=== PATIENT | female | born 1960 | race Caucasian/White ===

== ENCOUNTER 2019-09-05 10:07 | Emergency (ER) | payer SELFPAY ==
[~2019-09-05] VITALS: Ht 157.4 cm; Wt 104.5 kg
[~2019-09-05 10:07] MED LIST: ALPR0.25 PO; ASP81TEC PO; ASPI-892 PO; FURO40TA4 PO; LISI10TA2 PO; LISI5TAB PO; LISI5TAB14 PO; METO-272 PO; MTP25TSR PO; MULT-974 PO; NITR100C44 PO; OMG1KC PO; PANT40SU PO; PANT40TA2 PO; POTA20TA15 PO
--- NOTE | 2019-09-05 11:40 | ED Lower Extremity ---
General Chief Complaint: Lower Extremity Stated Complaint: L LEG SWELLING/PAIN;SOA Nursing Triage Note: PT AMB TO TRIAGE WITH COMPLAINT OF LEFT LEG SWELLING AND REDNESS. STATES STARTED YESTERDAY. Nursing Sepsis Screen: No Definite Risk Source: patient Exam Limitations: no limitations History of Present Illness Date Seen by Provider: Sep 05, 2019 Time Seen by Provider: 11:38 Initial Comments To ER with reports of medial left lower leg redness swelling and tenderness that began yesterday. She's also had some intermittent shortness of breath since then but states that she has some anxiety and it could be simply related to that. Onset: just prior to arrival Severity: moderate Pain/Injury Location: left leg Method of Injury: unknown Modifying Factors: Worse With Movement Allergies and Home Medications Allergies Coded Allergies: codeine (Verified Allergy, Unknown, 04/08/15) Home Medications Alprazolam 0.25 Mg Tablet, 0.5 TAB PO DAILY PRN for ANXIETY, (Reported) NEEDED FOR ANXIETY Amoxicillin/Potassium Clav 1 Each Tablet, 1 EACH PO BID Prescribed by: VICTOR MANUEL GARCÍA on 09/05/19 1206 Aspirin 81 Mg Tabec, 81 MG PO Q48HRS, (Reported) TAKES ABOUT EVERY OTHER DAY Furosemide 40 Mg Tablet, 20 MG PO DAILY PRN for SWELLING, (Reported) TAKES 1/2 (40MG) TABLET NEEDED FOR SWELLING Lisinopril 5 Mg Tablet, 5 MG PO BID Prescribed by: RAHEEM ORELLANA on 04/09/15 1119 Metoprolol Succinate 50 Mg Tab.sr.24h, 50 MG PO BID, (Reported) TAKES AT 11 AM AND 11 PM Multivitamin 1 Each Tablet, 1 TAB PO DAILY, (Reported) Nitrofurantoin/Nitrofuran Mac 100 Mg Capsule, 100 MG PO BID Prescribed by: RAHEEM ORELLANA on 04/09/15 1100 [place] 3 Polyunsat Fatty Acids 1,000 Mg Cap, 1,000 MG PO DAILY, (Reported) Pantoprazole Sod 40 Mg Tab, 40 MG PO DAILY Prescribed by: DANIELE HUSSEIN on 04/09/15 0840 Potassium Chloride 20 Meq Tab.prt.sr, 20 MEQ PO DAILY PRN for WHEN TAKING FUROSEMIDE, (Reported) NEEDED WHEN TAKING FUROSEMIDE Patient Home Medication List Home Medication List Reviewed: Yes Review of Systems Constitutional: see HPI; No chills, No fever EENTM: see HPI Respiratory: no symptoms reported Cardiovascular: no symptoms reported Genitourinary: no symptoms reported Musculoskeletal: see HPI Skin: see HPI Psychiatric/Neurological: No Symptoms Reported Past Hmyyvsr-Zhghye-Lrvxwh Hx Patient Social History Alcohol Use: Denies Use Recreational Drug Use: No Smoking Status: Current Everyday Smoker Type Used: Cigarettes Recent Foreign Travel: No Contact w/Someone Who Travel: No Recent Infectious Disease Expo: No Recent Hopitalizations: No Physical Abuse: No Sexual Abuse: No Mistreated: No Fear: No Immunizations Up To Date Tetanus Booster (TDap): Unknown PED Vaccines UTD: Yes Date of Influenza Vaccine: Nov 13, 2013 Seasonal Allergies Seasonal Allergies: Yes Past Medical History Surgeries: Yes (HERNIA REPAIR, LITHOTRIPSY) Abdominal, Cardiac, Gallbladder, Renal, Tubal Ligation Respiratory: No Emphysema Cardiac: Yes Chronic Edema/Swelling, Hypertension Neurological: Yes Headaches /Migraines Reproductive Disorders: No Female Reproductive Disorders: Ovarian Cyst TEST [employer] History: Menopausal Sexually Transmitted Disease: No Kidney Stones Gastrointestinal: Yes Abdominal Hernia, Gall Bladder Disease Musculoskeletal: No Endocrine: No Hearing Impairment: Denies Cancer: No Psychosocial: Yes (PANIC ATTACKS) Anxiety Integumentary: No Blood Disorders: No Family Medical History Cataract 19 MOTHER Family history: Cardiovascular disease 19 FATHER Family history: Hypertension 19 FATHER 19 MOTHER Gout G8 BROTHER Headache 19 FATHER 19 MOTHER G8 SISTER Hearing loss 19 FATHER 19 MOTHER Heart disease 19 FATHER History of - anemia 19 FATHER Myocardial infarction 19 FATHER No Family History of: Abdominal aortic aneurysm Freeburn's disease Alcoholism Aphasia Cancer Cancer of colon Chest pain Congenital heart disease Congestive heart failure Cystic fibrosis Dementia Dysphagia Family history: Allergy Family history: Alzheimer's disease Family history: Arthritis Family history: Asthma Family history: Breast disease Family history: Coronary thrombosis Family history: Diabetes mellitus Family history: Gastrointestinal disease Family history: Glaucoma Family history: Osteoporosis Family history: Thyroid disorder Hereditary disease History of - disorder History of - respiratory disease History of drug abuse Human immunodeficiency virus (HIV) seropositivity Hypercholesterolemia Infertile Kidney disease Malignant neoplasm of lung Parkinson's disease Prostate cancer Psychotic disorder Seizure disorder Stroke Tuberculosis Visual impairment Physical Exam Vital Signs Vital Signs - First Documented 09/05/19 10:45 Temp 36.4 Pulse 72 Resp 22 B/P (MAP) 162/108 (126) Pulse Ox 99 O2 Delivery Room Air Capillary Refill : Less Than 3 Seconds Height, Weight, BMI Height: 5'2.00" Weight: 246lbs. 6.4oz. 111.600288dx; 42.00 BMI Method: General Appearance: WD/WN, no apparent distress HEENT: PERRL/EOMI, normal ENT inspection Respiratory: no respiratory distress, no accessory muscle use Hips: bilateral hip non-tender, bilateral hip normal inspection, bilateral hip normal range of motion Legs: left leg other (palm sized area of erythema to the medial aspect of the left lower leg. There is no lymphangitis. There are some varicose veins medial aspect of the knee but she states these are no more dilated than usual. The pain extends up the posterior calf to the knee.) Knees: bilateral knee non-tender, bilateral knee normal inspection, bilateral knee normal range of motion Ankles: bilateral ankle non-tender, bilateral ankle normal inspection, bilateral ankle normal range of motion Feet: bilateral foot non-tender, bilateral foot normal inspection, bilateral foot normal range of motion Neurologic/Psychiatric: alert, normal mood/affect, oriented x 3 Skin: normal color, warm/dry Progress/Results/Core Measures Results/Orders Lab Results Laboratory Tests Test 09/05/19 11:58 Range/Units White Blood Count 8.4 4.3-11.0 10^3/uL Red Blood Count 4.94 4.35-5.85 10^6/uL Hemoglobin 14.1 11.5-16.0 G/DL Hematocrit 44 35-52 % Mean Corpuscular Volume 88 80-99 FL Mean Corpuscular Hemoglobin 29 25-34 PG Mean Corpuscular Hemoglobin Concent 32 32-36 G/DL Red Cell Distribution Width 14.9 H 10.0-14.5 % Platelet Count 263 130-400 10^3/uL Mean Platelet Volume 10.8 H 7.4-10.4 FL Neutrophils (%) (Auto) 60 42-75 % Lymphocytes (%) (Auto) 29 12-44 % Monocytes (%) (Auto) 7 0-12 % Eosinophils (%) (Auto) 4 0-10 % Basophils (%) (Auto) 1 0-10 % Neutrophils # (Auto) 5.1 1.8-7.8 X 10^3 Lymphocytes # (Auto) 2.4 1.0-4.0 X 10^3 Monocytes # (Auto) 0.6 0.0-1.0 X 10^3 Eosinophils # (Auto) 0.3 0.0-0.3 10^3/uL Basophils # (Auto) 0.0 0.0-0.1 10^3/uL Sodium Level 141 135-145 MMOL/L Potassium Level 4.1 3.6-5.0 MMOL/L Chloride Level 102 98-107 MMOL/L Carbon Dioxide Level 26 21-32 MMOL/L Anion Gap 13 5-14 MMOL/L Blood Urea Nitrogen 10 7-18 MG/DL Creatinine 1.04 0.60-1.30 MG/DL Estimat Glomerular Filtration Rate 54 BUN/Creatinine Ratio 10 Glucose Level 96 70-105 MG/DL Calcium Level 9.7 8.5-10.1 MG/DL Corrected Calcium 9.5 8.5-10.1 MG/DL Total Bilirubin 0.5 0.1-1.0 MG/DL Aspartate Amino Transf (AST/SGOT) 25 5-34 U/L Alanine Aminotransferase (ALT/SGPT) 32 0-55 U/L Alkaline Phosphatase 118 40-136 U/L B-Type Natriuretic Peptide 35.7 <100.0 PG/ML Total Protein 7.7 6.4-8.2 GM/DL Albumin 4.2 3.2-4.5 GM/DL My Orders Orders - VICTOR MANUEL GARCÍA APRN BNP (09/05/19 11:26) Cbc With Automated Diff (09/05/19 11:26) Comprehensive Metabolic Panel (09/05/19 11:26) Us Venous Lower Ext Lt (09/05/19 11:26) Vital Signs/I&O 09/05/19 10:45 Temp 36.4 Pulse 72 Resp 22 B/P (MAP) 162/108 (126) Pulse Ox 99 O2 Delivery Room Air Blood Pressure Mean: 126 Departure Communication (Admissions) Patient longer feels short of breath at this time after taking 1 of her own Xanax. I will cancel the chest x-ray Impression Primary Impression: Cellulitis of left leg Disposition: HOME, SELF-CARE Condition: Stable Departure-Patient Inst. Decision time for Depature: 12:05 Referrals: NO,LOCAL PHYSICIAN (PCP) Primary Care Physician Patient Instructions: Cellulitis (Skin Infection), Adult (DC) Add. Discharge Instructions: 1. Tylenol and ibuprofen for pain control 2. Return to ER for any concerns 3. Antibiotic as directed. All discharge instructions reviewed with patient and/or family. Voiced understanding. Scripts Amoxicillin/Potassium Clav (Augmentin 875-125 Tablet) 1 Each Tablet 1 EACH PO BID, #14 TAB 0 Refills . Prov: VICTOR MANUEL GARCÍA APRN 09/05/19 VICTOR MANUEL GARCÍA APRN Sep 05, 2019 11:40
[2019-09-05 12:03] LABS: BASOPHILS % (AUTO) 1 % (0-10); EOSINOPHILS # (AUTO) 0.3 10^3/uL (0.0-0.3); EOSINOPHILS % (AUTO) 4 % (0-10); HEMATOCRIT 44 % (35-52); HEMOGLOBIN 14.1 G/DL (11.5-16.0); LYMPHOCYTES # (AUTO) 2.4 X 10^3 (1.0-4.0); LYMPHOCYTES % (AUTO) 29 % (12-44); MEAN CORPUSCULAR HEMOGLOBIN 29 PG (25-34); MEAN CORPUSCULAR HGB CONC 32 G/DL (32-36); MEAN CORPUSCULAR VOLUME 88 FL (80-99); MEAN PLATELET VOLUME 10.8 FL (7.4-10.4); MONOCYTES # (AUTO) 0.6 X 10^3 (0.0-1.0); MONOCYTES % (AUTO) 7 % (0-12); NEUTROPHILS # (AUTO) 5.1 X 10^3 (1.8-7.8); NEUTROPHILS % (AUTO) 60 % (42-75); PLATELET COUNT 263 10^3/uL (130-400); RED CELL DISTRIBUTION WIDTH 14.9 % (10.0-14.5); WHITE BLOOD COUNT 8.4 10^3/uL (4.3-11.0)
[2019-09-05] MEDS ORDERED: AMOX-358 PO ×2 (12:06→12:41)
--- NOTE | 2019-09-05 12:10 | Diagnostic Imaging Report ---
PROCEDURE: US left lower extremity venous. TECHNIQUE: Multiple real-time grayscale images were obtained over the left lower extremity in various projections. Additional duplex Doppler and color Doppler images were also obtained. INDICATION: Left leg pain. EXAMINATION: Grayscale and color Doppler evaluation of the deep veins of the left lower extremity were performed with waveform analysis. FINDINGS: Continuous venous flow is present. No intraluminal filling defect is identified. There is normal compressibility and response to augmentation. No abnormal perivascular fluid collection is identified. IMPRESSION: No ultrasound evidence of left lower extremity deep venous thrombosis. Dictated by: Dictated on workstation # [id number]
[2019-09-05 12:27] LABS: ALBUMIN 4.2 GM/DL (3.2-4.5); BILIRUBIN,TOTAL 0.5 MG/DL (0.1-1.0); CALCIUM 9.7 MG/DL (8.5-10.1); CREATININE SERUM 1.04 MG/DL (0.60-1.30); POTASSIUM 4.1 MMOL/L (3.6-5.0); TOTAL PROTEIN 7.7 GM/DL (6.4-8.2)
[2019-09-05 12:39] VITALS: BP 150/96
== END 2019-09-05 12:39 | disposition home or self-care (01) ==
LOC: EDUNIT# 10:07 → ER 10:08
DX: L03.116 Cellulitis of left lower limb (principal); J43.9 Emphysema, unspecified; I10 Essential (primary) hypertension; G43.909 Migraine, unspecified, not intractable, without status migrainosus; F41.0 Panic disorder [episodic paroxysmal anxiety]; F17.210 Nicotine dependence, cigarettes, uncomplicated; Z87.442 Personal history of urinary calculi; Z98.51 Tubal ligation status; Z88.5 Allergy status to narcotic agent; Z79.82 Long term (current) use of aspirin; Z82.49 Family history of ischemic heart disease and other diseases of the circulatory system
CPT/HCPCS: 36415; 80053; 83880; 85025